=== PATIENT | female | born 1980 | race Caucasian/White ===

== ENCOUNTER 2017-07-23 12:58 | Emergency (ER) | payer OTHER ==
[~2017-07-23] VITALS: Ht 160 cm; Wt 90.7 kg
--- NOTE | 2017-07-23 13:36 | PHYS DOC ---
Past History Past Medical History: Hypertension Past Surgical History: Cholecystectomy, Other Alcohol Use: None Drug Use: None Adult General Chief Complaint Chief Complaint: Neck swelling HPI HPI 36-year-old female patient resident of [facility], [place], operated by [facility] she was eating her food last night and had swelling of left side of her neck that improved after stop eating and this morning increase again during eating solid food. Patient complaining of discomfort feeling in left side of her neck that getting worse with eating. Patient rated her pain 1/10 without eating and denies history of injury and the same problem previously. Denies fever and chills, nausea, vomiting, shortness of breath, swallowing problem. Review of Systems Review of Systems Constitutional: Denies fever or chills [] Eyes: Denies change in visual acuity, redness, or eye pain [] HENT: Denies nasal congestion or sore throat [] Respiratory: Denies cough or shortness of breath [] Cardiovascular: No additional information not addressed in HPI [] GI: Denies abdominal pain, nausea, vomiting, bloody stools or diarrhea [] : Denies dysuria or hematuria [] Musculoskeletal: Denies back pain or joint pain [] Integument: Denies rash or skin lesions [] Neurologic: Denies headache, focal weakness or sensory changes [] Endocrine: Denies polyuria or polydipsia [] All other systems were reviewed and found to be within normal limits, except as documented in this note. Allergies Allergies Allergies Coded Allergies Type Severity Reaction Last Updated Verified No Known Drug Allergies 07/23/17 No Physical Exam Physical Exam Constitutional: Well developed, well nourished, no acute distress, non-toxic appearance. [] HENT: Normocephalic, atraumatic, bilateral external ears normal, oropharynx moist, no oral exudates, nose normal. [] Eyes: PERRLA, EOMI, conjunctiva normal, no discharge. [] Neck: Normal range of motion, no tenderness, supple, no stridor, mild erythema of left cervical area without sign of abscess or infection. [] Cardiovascular:Heart rate regular rhythm, no murmur [] Lungs & Thorax: Bilateral breath sounds clear to auscultation [] Abdomen: Bowel sounds normal, soft, no tenderness, no masses, no pulsatile masses. [] Skin: Warm, dry, no erythema, no rash. [] Back: No tenderness, no CVA tenderness. [] Extremities: No tenderness, no cyanosis, no clubbing, ROM intact, no edema. [] Neurologic: Alert and oriented X 3, normal motor function, normal sensory function, no focal deficits noted. [] Psychologic: Affect normal, judgement normal, mood normal. [] Current Patient Data Vital Signs Vital Signs Date Time Temp Pulse Resp B/P (MAP) Pulse Ox O2 Delivery O2 Flow Rate FiO2 07/23/17 13:05 98.3 104 18 97 Room Air EKG EKG [] Radiology/Procedures Radiology/Procedures [] [address] [address] IMAGING REPORT Signed PATIENT: JOSELINE BARRIENTOS ACCOUNT: [id number] : 1980 LOCATION: ER AGE: 36 SEX: F EXAM STATUS: REG ER ORD. PHYSICIAN: SUDHAKAR LOPEZ MD REASON: left paracervical edema during eating PROCEDURE: CT SOFT TISSUE NECK W/CONTRAST PQRS Compliance Statement: One or more of the following individualized dose reduction techniques were utilized for this examination: 1. Automated exposure control 2. Adjustment of the mA and/or kV according to patient size 3. Use of iterative reconstruction technique Neck CT with contrast: 07/23/2017 Indication: Left neck swelling after eating. Technique: Multiple axial images were obtained through the neck following intravenous injection of contrast material. Coronal and sagittal reformats are provided. Comparison: None. Findings: The visualized brain parenchyma appears intact. The skull base is normal. The visualized paranasal sinuses and orbital contents are normal. The sella turcica and cavernous sinus regions appear intact. The mastoid air cells are normal. The fossa of Rosenmuller is normal. The parotid space contents and jet dyeing machine tender space contents appear intact. The parapharyngeal spaces are normal. The submandibular and sublingual space contents appear intact. The epiglottis, aryepiglottic folds, and piriform sinuses are normal. The vallecula appears normal. The larynx and trachea are normal. The thyroid lobes appear intact. The carotid space contents are normal. There is no deep cervical chain adenopathy observed. The jugulodigastric regions appear intact. The perivertebral space contents are normal. The supraclavicular regions appear intact. The visualized mediastinum is normal. The visualized lungs appear intact. The visualized osseous structures are normal. Impression: No pathologically enlarged cervical lymph nodes are visualized. No suspicious mucosal abnormality is visualized. There is no retained radiopaque foreign body. Electronically signed by: Erica Alonso MD (07/23/2017 2:46 PM) [id number] DICTATED AND SIGNED BY: ERICA ALONSO MD DATE: 07/23/17 1440 CC: SUDHAKAR LOPEZ MD; PCP,PEDRO ~ Course & Med Decision Making Course & Med Decision Making Pertinent Labs and Imaging studies reviewed. (See chart for details) discharge: I've spoken with the patient and/or caregivers. I've explained the patient's condition, diagnosis and treatment plan based on information available to me at this time. I've answered the patient's and/or caregivers questions and addressed any concerns. The patient and/or caregivers have a good understanding the patient's diagnosis, condition and treatment plan as can be expected at this point. Vital signs have been stabilized. The patient's condition is stable for discharge from the emergency department. The patient will pursue further outpatient evaluation with her primary care provider or other designated consulting physician as outlined in the discharge instructions. Patient and/or caregivers are agreeable to this plan of care and follow-up instructions have been explained in detail. The patient and/or caregivers have received these instructions in written format and expressed understanding of these discharge instructions. The patient and her caregivers are aware that if any significant change in condition or worsening of symptoms should prompt him to immediately return to this of the closest emergency department. If an emergent department is not readily available I would encourage him to call 911. [] Dragon Disclaimer Dragon Disclaimer This electronic medical record was generated, in whole or in part, using a voice recognition dictation system. Departure Departure: Impression: Primary Impression: Parotid gland enlargement Disposition: 01 HOME, SELF-CARE (At 1540) Condition: IMPROVED Referrals: PCPPEDRO (PCP) Patient Instructions: Parotitis Additional Instructions: Drink plenty of liquids Follow-up with your primary care physician in 3-5 days Return to ER if not getting better Scripts Naproxen (NAPROSYN) 500 Mg Tablet 1 TAB PO BID, #20 TAB 1 Refill Prov: SUDHAKAR LOPEZ MD 07/23/17 Amoxicillin/Potassium Clav (AUGMENTIN 875-125 TABLET) 1 Each Tablet 1 TAB PO BID, #14 TAB Prov: SUDHAKAR LOPEZ MD 07/23/17 SUDHAKAR LOPEZ MD July 23, 2017 13:36
[2017-07-23] MEDS ORDERED: IOHEXOL 300 MG/ML 75 ML VIAL. IV ONE (13:45)
[2017-07-23 13:50] LABS: BASO # 0.1 x10^3/uL (0.0-0.2); BASO % 1 % (0-3); EOS # 0.2 x10^3/uL (0.0-0.7); EOS % 2 % (0-3); HEMATOCRIT 40.2 % (36.0-47.0); HEMOGLOBIN 13.5 g/dL (12.0-15.5); LYMPH # 2.4 x10^3/uL (1.0-4.8); LYMPH % 23 % (24-48); MEAN CORPUSCULAR HEMOGLOBIN 28 pg (25-35); MEAN CORPUSCULAR HGB CONC 34 g/dL (31-37); MEAN CORPUSCULAR VOLUME 82 fL (79-100); MONO # 0.6 x10^3/uL (0.0-1.1); MONO % 6 % (0-9); NEUT # 7.5 x10^3uL (1.8-7.7); NEUT % 70 % (31-73); PLATELET COUNT 348 x10^3/uL (140-400); RED BLOOD COUNT 4.88 x10^6/uL (3.50-5.40); RED CELL DISTRIBUTION WIDTH 13.6 % (11.5-14.5); WHITE BLOOD COUNT 10.8 x10^3/uL (4.0-11.0)
[2017-07-23 14:05] LABS: ALBUMIN 3.7 g/dL (3.4-5.0); ALBUMIN/GLOBULIN RATIO 0.9 (1.0-1.7); CALCIUM 8.9 mg/dL (8.5-10.1); CREATININE 0.8 mg/dL (0.6-1.0); GFR 81.6; TOTAL BILIRUBIN 0.4 mg/dL (0.2-1.0); TOTAL PROTEIN 7.9 g/dL (6.4-8.2)
--- NOTE | 2017-07-23 14:49 | RAD ---
PQRS Compliance Statement: One or more of the following individualized dose reduction techniques were utilized for this examination: 1. Automated exposure control 2. Adjustment of the mA and/or kV according to patient size 3. Use of iterative reconstruction technique Neck CT with contrast: 07/23/2017 Indication: Left neck swelling after eating. Technique: Multiple axial images were obtained through the neck following intravenous injection of contrast material. Coronal and sagittal reformats are provided. Comparison: None. Findings: The visualized brain parenchyma appears intact. The skull base is normal. The visualized paranasal sinuses and orbital contents are normal. The sella turcica and cavernous sinus regions appear intact. The mastoid air cells are normal. The fossa of Rosenmuller is normal. The parotid space contents and scientific database curator space contents appear intact. The parapharyngeal spaces are normal. The submandibular and sublingual space contents appear intact. The epiglottis, aryepiglottic folds, and piriform sinuses are normal. The vallecula appears normal. The larynx and trachea are normal. The thyroid lobes appear intact. The carotid space contents are normal. There is no deep cervical chain adenopathy observed. The jugulodigastric regions appear intact. The perivertebral space contents are normal. The supraclavicular regions appear intact. The visualized mediastinum is normal. The visualized lungs appear intact. The visualized osseous structures are normal. Impression: No pathologically enlarged cervical lymph nodes are visualized. No suspicious mucosal abnormality is visualized. There is no retained radiopaque foreign body. Electronically signed by: Shana Alonso MD (07/23/2017 2:46 PM) [id number]
[2017-07-23 15:36] VITALS: BP 145/89
[2017-07-23] MEDS ORDERED: AMOX1TAB61 PO (15:38)
[2017-07-23] MEDS ORDERED: NAPR-683 PO (15:38)
[2017-07-23] MEDS ORDERED: cefTRIAXone IV Push 1 GM VIAL. IVP ONE (15:45)
== END 2017-07-23 15:55 | disposition home or self-care (01) ==
LOC: ER 12:58
DX: K11.1 Hypertrophy of salivary gland (principal); I10 Essential (primary) hypertension
CPT/HCPCS: 36415; 70491; 80053; 83605; 85025; 96374; 99285; J0696; Q9967

== ENCOUNTER 2017-09-13 07:46 | Emergency (ER) | payer OTHER ==
[~2017-09-13] VITALS: Ht 160 cm; Wt 88.5 kg
[2017-09-13 07:46] VITALS: BP 150/101
[~2017-09-13 07:46] MED LIST: AMOX1TAB61 PO; NAPR-683 PO
--- NOTE | 2017-09-13 08:09 | PHYS DOC ---
Past History Past Medical History: Hypertension Past Surgical History: Cholecystectomy, Other Alcohol Use: None Drug Use: None Adult General Chief Complaint Chief Complaint: SKIN RASH/ABSCESS HPI HPI 36-year-old female presents with 5 day history of rash. The patient started to see a scattered vesicular areas on her arms 5 days ago. They are intensely pruritic. She is continued to get additional lesions over the last 5 days on her upper arms and now the left side of her lower neck. She admits to being exposed to outside gardening work, though she wore gloves. She does not have any lesions on her hands. She further states that she has used the same garden implements since her initial exposure. There was also a dog out in the garden area with her that she has continued to have exposure to. She has not had poison sanjana and a long time, but this seems similar. She has been treating it with calamine and taking oral Benadryl. She presents today because it seems to be spreading and the pruritus is really bothersome. Review of Systems Review of Systems Constitutional: Denies fever or chills [] Eyes: Denies change in visual acuity, redness, or eye pain [] HENT: Denies nasal congestion or sore throat [] Respiratory: Denies cough or shortness of breath [] Cardiovascular: No additional information not addressed in HPI [] GI: Denies abdominal pain, nausea, vomiting, bloody stools or diarrhea [] : Denies dysuria or hematuria [] Musculoskeletal: Denies back pain or joint pain [] Integument: skin rash[] Neurologic: Denies headache, focal weakness or sensory changes [] Endocrine: Denies polyuria or polydipsia [] All other systems were reviewed and found to be within normal limits, except as documented in this note. Allergies Allergies Allergies Coded Allergies Type Severity Reaction Last Updated Verified No Known Drug Allergies 07/23/17 No Physical Exam Physical Exam Constitutional: Well developed, well nourished, no acute distress, non-toxic appearance. [] HENT: Normocephalic, atraumatic, bilateral external ears normal, oropharynx moist, no oral exudates, nose normal. [] Eyes: PERRLA, EOMI, conjunctiva normal, no discharge. [] Neck: Normal range of motion, no tenderness, supple, no stridor. [] Cardiovascular:Heart rate regular rhythm, no murmur [] Lungs & Thorax: Bilateral breath sounds clear to auscultation [] Abdomen: Bowel sounds normal, soft, no tenderness, no masses, no pulsatile masses. [] Skin: Scattered, erythematous patches on the bilateral arms and left lower neck. There are vesicles with the rash. It looks consistent with rhus dermatitis. [] Back: No tenderness, no CVA tenderness. [] Extremities: No tenderness, no cyanosis, no clubbing, ROM intact, no edema. [] Neurologic: Alert and oriented X 3, normal motor function, normal sensory function, no focal deficits noted. [] Psychologic: Affect normal, judgement normal, mood normal. [] Current Patient Data Vital Signs Vital Signs Date Time Temp Pulse Resp B/P (MAP) Pulse Ox O2 Delivery O2 Flow Rate FiO2 09/13/17 07:46 97.9 90 16 98 Room Air EKG EKG [] Radiology/Procedures Radiology/Procedures [] Course & Med Decision Making Course & Med Decision Making Pertinent Labs and Imaging studies reviewed. (See chart for details) The patient seems to been exposed to poison sanjana or poison oak. I will treat the patient with 125 of Solu-Medrol in the ED as well as an Rx for a 14 day course of prednisone. [] Dragon Disclaimer Dragon Disclaimer This electronic medical record was generated, in whole or in part, using a voice recognition dictation system. Departure Departure: Referrals: PCP,NO (PCP) Scripts Prednisone (PREDNISONE) 10 Mg Tablet 10 MG PO UD for PREDNISONE TAPER, #37 TAB 0 Refills Take 4 tablets by mouth once a day for 4 days, then take 3 tablets by mouth once a day for 4 days, then take 2 tablets by mouth once a day for 3 days, then take 1 tablet by mouth daily x 3 days, then stop. Prov: CARLEE BRADLEY DO 09/13/17 CARLEE BRADLEY DO Sep 13, 2017 08:08
[2017-09-13] MEDS ORDERED: PRED-220 PO (08:13)
[2017-09-13] MEDS ORDERED: methylPREDNISolone SOD SUCC PF 125 MG/2 ML VIAL. IM ONE (08:30)
== END 2017-09-13 08:28 | disposition home or self-care (01) ==
LOC: ER 07:46
DX: L23.7 Allergic contact dermatitis due to plants, except food (principal); I10 Essential (primary) hypertension
CPT/HCPCS: 96372; 99283; J2930